=== PATIENT | male | born 1995 | race Two or more races ===

== ENCOUNTER 2021-04-28 10:03 | Emergency (ER) | payer OTHER ==
[2021-04-28] MEDS ORDERED: Diphtheria,Pertussis(Acell),Tetanus Vaccine 0.5 ML Syringe IM ONE (10:15)
--- NOTE | 2021-04-28 10:24 | EDM.PDOC ---
ED HPI GENERAL MEDICAL PROBLEM - General Chief Complaint: Laceration Stated Complaint: LEFT MIDDLE FINGER LACERATION Time Seen by Provider: 04/28/21 10:19 Source of Information: Reports: Patient History Limitations: Reports: No Limitations - History of Present Illness INITIAL COMMENTS - FREE TEXT/NARRATIVE: Patient grazed the tip of his left 3rd digit against the edge of a metal sign at work @1-2 hours ago. He is unsure when his last tetanus shot was. Patient is right hand dominant. Onset: Today Duration: Hour(s): (1-2) Location: Reports: Upper Extremity, Left Severity: Mild - Related Data Allergies Allergy/AdvReac Type Severity Reaction Status Date / Time No Known Allergies Allergy Verified 04/28/21 10:22 Home Meds: Home Meds NK [No Known Home Meds] 04/28/21 [History] Past Medical History - Past Health History Medical/Surgical History: Denies Medical/Surgical History Review of Systems - Review of Systems Review Of Systems: Comprehensive ROS is negative, except as noted in HPI. ED EXAM, GENERAL - Physical Exam Exam: See Below Exam Limited By: No Limitations General Appearance: Alert, WD/WN, No Apparent Distress Throat/Mouth: No Airway Compromise Head: Atraumatic, Normocephalic Neck: Full Range of Motion Respiratory/Chest: No Respiratory Distress Peripheral Pulses: 3+: Radial (L) Extremities: Normal Capillary Refill, Other (superficial flap laceration to tip of left 3rd digit, rom intact) Neurological: Alert, Normal Cognition, No Motor/Sensory Deficits Psychiatric: Normal Affect, Normal Mood Skin Exam: Other (as above) ED TRAUMA EXTREMITY PROCEDURES - Laceration/Wound Repair Left Digit - 3rd (Middle) Lac/Wound Length In cm: 1 Appearance: Superficial (flap) Distal NVT: Neuro & Vascular Intact Skin Prep: Chlorhexidine (Hibiciens) (soak x 10 min) Closed With: Dermabond Drain Placement: No Tetanus Status Addressed: Yes Complications: No Course - Vital Signs Last Recorded V/S: Last Vital Signs Temp 36.8 C 04/28/21 10:22 Pulse 77 04/28/21 10:22 Resp 16 04/28/21 10:22 BP 126/74 04/28/21 10:22 Pulse Ox 97 04/28/21 10:22 - Orders/Labs/Meds Orders: Active Orders 24 hr Category Date Time Status Vaccines to be Administered [RC] PER UNIT ROUTINE Care 04/28/21 10:15 Active Meds: Medications Discontinued Medications Generic Name Dose Route Start Last Admin Trade Name Markel PRN Reason Stop Dose Admin Diphtheria/Tetanus/Acell Pertussis 0.5 ml 04/28/21 10:15 Diphtheria,Pertussis(Acell),Tetanus Vaccine 0.5 Ml Syringe IM 04/28/21 10:16 .ONCE ONE Departure - Departure Time of Disposition: 10:41 Disposition: Home, Self-Care 01 Condition: Good Clinical Impression: Finger laceration Qualifiers: Encounter type: initial encounter Finger: middle finger Damage to nail status: without damage Foreign body presence: without foreign body Laterality: left Qualified Code(s): S61.213A - Laceration without foreign body of left middle finger without damage to nail, initial encounter - Discharge Information *PRESCRIPTION DRUG MONITORING PROGRAM REVIEWED*: No *COPY OF PRESCRIPTION DRUG MONITORING REPORT IN PATIENT RE: Not Applicable Instructions: Sutures, Naylor, or Adhesive Wound Closure, [id number] Forms: ED Department Discharge Additional Instructions: Keep wound clean and dry. Follow up with symptoms or signs of infection. Sepsis Event Note (ED) - Focused Exam Vital Signs: Vital Signs Temp Pulse Resp BP Pulse Ox 04/28/21 10:22 36.8 C 77 16 126/74 97 - My Orders Last 24 Hours: My Active Orders 04/28/21 10:15 Vaccines to be Administered [RC] PER UNIT ROUTINE - Assessment/Plan Last 24 Hours: My Active Orders 04/28/21 10:15 Vaccines to be Administered [RC] PER UNIT ROUTINE
== END 2021-04-28 10:55 | disposition home or self-care (01) ==
LOC: FB.ED 10:03
DX: S61.213A Laceration without foreign body of left middle finger without damage to nail, initial encounter (principal); Z23 Encounter for immunization; W26.8XXA Contact with other sharp object(s), not elsewhere classified, initial encounter; Y99.0 Civilian activity done for income or pay
CPT/HCPCS: 12001; 90471; 90715; 99282; 99282-25